=== PATIENT | female | born 1935 | race Caucasian/White ===

== ENCOUNTER → 2019-04-23 | Outpatient (CLI) | payer MEDICARE ==
[~2019-04-23] MED LIST: HYDROCODON-ACE1 EAC7 PO; SYNTHROID300 MCG PO; ZOFRAN4 MG PO
== END ==
LOC: M.ULTRA 11:21
DX: M79.661 Pain in right lower leg (principal); M79.672 Pain in left foot

== ENCOUNTER → 2019-07-16 | Outpatient (CLI) | payer MEDICARE ==
--- NOTE | 2019-07-16 15:25 | 2DMMODE ---
[place] [address] 2 D/M-MODE ECHOCARDIOGRAM Name: LESLIE VILLEGAS Room: [facility]#: [id number] Admission: 07/16/19 Attend Phys: Nicole Loza, Discharge: Date of : 33 Date of Service: 07/16/19 1524 Report #: [id number] THIS REPORT FOR: //name// APPROVED REPORT Study performed: 07/16/2019 13:53:30 EXAM: Comprehensive 2D, Doppler, and color-flow Echocardiogram Patient Location: Out-Patient BSA: 1.47 HR: 82 bpm BP: 118/78 mmHg Other Information Study Quality: Good Indications Peripheral Edema 2D Dimensions IVSd: 9.93 (7-11mm) LVOT Diam: 20.39 (18-24mm) LVDd: 35.14 mm PWd: 9.53 (7-11mm) Ascending Ao: 29.96 (22-36mm) LVDs: 21.28 (25-40mm) Aortic Root: 28.39 mm Volumes Left Atrial Volume (Systole) LA ESV Index: 16.10 mL/m2 Aortic Valve AoV Peak Albert.: 0.95 m/s AO Peak Gr.: 3.60 mmHg LVOT Max P.14 mmHg AO Mean Gr.: 1.87 mmHg LVOT Mean P.94 mmHg LVOT Max V: 1.02 m/s AO V2 VTI: 22.44 cm LVOT Mean V: 0.64 m/s IFRAH (VTI): 3.17 cm2 LVOT V1 VTI: 21.77 cm Mitral Valve E/A Ratio: 0.96 MV Decel. Time: 196.83 ms MV E Max Albert.: 1.05 m/s MV PHT: 57.08 ms MVA (PHT): 3.85 [place]2 [place] [address] 2 D/M-MODE ECHOCARDIOGRAM Name: LESLIE VILLEGAS Room: [facility]#: [id number] Admission: 07/16/19 Attend Phys: Nicole Loza, Discharge: Date of : 33 Date of Service: 07/16/19 1524 Report #: [id number] TDI E/Lateral E': 15.00 E/Medial E': 13.13 Medial E' Albert.: 0.08 m/s Lateral E' Albert.: 0.07 m/s Pulmonary Valve PV Peak Albert.: 0.74 m/s PV Peak Gr.: 2.17 mmHg Tricuspid Valve RAP Estimate: 5.00 mmHg TR Peak Gr.: 26.22 mmHg RVSP: 31.22 mmHg PA Pressure: 31.22 mmHg Left Ventricle The left ventricle is normal size. There is normal LV segmental wall motion. There is normal left ventricular wall thickness. Left ventricular systolic function is normal. The left ventricular ejection fraction is within the normal range. LVEF is 55-60%. Grade I - abnormal relaxation pattern. Right Ventricle The right ventricle is normal size. The right ventricular systolic function is normal. Atria The left atrium size is normal. The right atrium size is normal. Aortic Valve The aortic valve is normal in structure. No aortic regurgitation is present. There is no aortic valvular stenosis. Mitral Valve Mitral valve leaflets are thickened. Mild mitral regurgitation. No evidence of mitral valve stenosis. There is mild mitral valve prolapse. Tricuspid Valve The tricuspid valve is normal in structure. Mild tricuspid regurgitation. estimated pa pressure 35 mm Hg Pulmonic Valve The pulmonary valve is normal in structure. There is no pulmonic [place] [address] 2 D/M-MODE ECHOCARDIOGRAM Name: LESLIE VILLEGAS Room: [facility]#: [id number] Admission: 07/16/19 Attend Phys: Nicole Loza, Discharge: Date of : 33 Date of Service: 07/16/19 1524 Report #: [id number] Great Vessels The aortic root is normal in size. IVC is normal in size and collapses >50% with inspiration. Pericardium There is no pericardial effusion. <Conclusion> LVEF is 55-60%. Mitral valve leaflets are thickened. Mild mitral regurgitation. There is mild mitral valve prolapse. Mild tricuspid regurgitation. estimated pa pressure 35 mm Hg <ELECTRONICALLY SIGNED> By: Tunde Schofield MD, FACC 07/16/19 1524 1524 1524 Tunde Schofield MD, FACC /INF
== END ==
LOC: M.CRD 13:53
DX: I08.1 Rheumatic disorders of both mitral and tricuspid valves (principal); I10 Essential (primary) hypertension

== ENCOUNTER 2019-12-07 12:49 | Emergency (ER) | payer MEDICARE ==
[~2019-12-07] VITALS: Ht 154.9 cm; Wt 50.4 kg
[2019-12-07] MEDS ORDERED: OMEPRAZOLE 20 M20 M1 PO (13:00)
[2019-12-07] MEDS ORDERED: NORCO 5-325 TA1 EAC1 PO (14:23)
[2019-12-07 14:43] VITALS: BP 167/77
== END 2019-12-07 14:44 | disposition home or self-care (01) ==
LOC: M.ERS 12:49
DX: S93.692A Other sprain of left foot, initial encounter (principal); E03.9 Hypothyroidism, unspecified; K21.9 Gastro-esophageal reflux disease without esophagitis; Z90.49 Acquired absence of other specified parts of digestive tract; Z88.2 Allergy status to sulfonamides; Z88.6 Allergy status to analgesic agent; X58.XXXA Exposure to other specified factors, initial encounter; Y93.89 Activity, other specified; Y92.89 Other specified places as the place of occurrence of the external cause; Y99.8 Other external cause status

== ENCOUNTER 2020-03-13 12:01 | Emergency (ER) | payer MEDICARE ==
[~2020-03-13] VITALS: Ht 154.9 cm; Wt 50.4 kg
[~2020-03-13 12:01] MED LIST changes: +NORCO 5-325 TA1 EAC1 PO; +OMEPRAZOLE 20 M20 M1 PO
[2020-03-13 12:52] LABS: BE 1.5 mmol/L (-2 to +3); PCO2 37.9 mmHg (35.0-45.0); pH 7.445 (7.340-7.450)
[2020-03-13 13:01] LABS: ABSOLUTE EOSINOPHILS 0.1 thou/uL (0.0-0.7); ABSOLUTE LYMPHOCYTES 1.5 thou/uL (0.8-5.3); ABSOLUTE MONOCYTES 0.5 thou/uL (0.0-1.2); ABSOLUTE NEUTROPHILS 3.8 thou/uL (1.6-8.1); BASOPHILS 0.6 %; EOSINOPHILS 1.3 %; HEMATOCRIT 38.5 % (37.0-47.0); HEMOGLOBIN 13.2 gm/dL (12.0-15.0); LYMPHOCYTES 24.9 %; MCH 33.5 pg (26.0-34.0); MCHC 34.3 g/dL (28.0-37.0); MCV 97.7 fL (80.0-100.0); MONOCYTES 8.5 %; MPV 9.1 fl. (7.2-11.1); NUCLEATED RBCS 0 /100WBC; PLATELET COUNT* 181 thou/uL (150-400); POLYS 64.7 %; RBC 3.94 mil/uL (4.20-5.00); RDW-CV 13.9 % (10.5-14.5); WBC 5.9 thou/uL (4.0-11.0)
[2020-03-13 13:12] LABS: CALCIUM 8.7 mg/dL (8.5-10.1); CREATININE 0.9 mg/dL (0.6-1.3); POTASSIUM 3.9 mmol/L (3.5-5.1)
[2020-03-13 13:17] LABS: ALBUMIN 4.1 g/dL (3.4-5.0); TOTAL BILIRUBIN 0.6 mg/dL (<0.1-1.0)
[2020-03-13 14:02] VITALS: BP 159/79
== END 2020-03-13 14:04 | disposition home or self-care (01) ==
LOC: M.ERS 12:01
PROVIDERS: Nurse Practitioner Family
DX: R51 Headache (principal); K21.9 Gastro-esophageal reflux disease without esophagitis; E03.9 Hypothyroidism, unspecified; Z77.29 Contact with and (suspected) exposure to other hazardous substances; Z90.49 Acquired absence of other specified parts of digestive tract; Z88.5 Allergy status to narcotic agent; Z88.2 Allergy status to sulfonamides

== ENCOUNTER 2020-05-17 17:09 | Emergency (ER) | payer MEDICARE ==
[~2020-05-17] VITALS: Ht 154.9 cm; Wt 45.8 kg
[2020-05-17 18:56] VITALS: BP 169/78
== END 2020-05-17 18:56 | disposition home or self-care (01) ==
LOC: M.ERS 17:09
DX: S01.01XA Laceration without foreign body of scalp, initial encounter (principal); E03.9 Hypothyroidism, unspecified; K21.9 Gastro-esophageal reflux disease without esophagitis; Z90.49 Acquired absence of other specified parts of digestive tract; Z88.5 Allergy status to narcotic agent; Z88.2 Allergy status to sulfonamides; W01.0XXA Fall on same level from slipping, tripping and stumbling without subsequent striking against object, initial encounter; Y93.89 Activity, other specified; Y92.89 Other specified places as the place of occurrence of the external cause; Y99.8 Other external cause status

== ENCOUNTER 2020-05-27 09:29 | Emergency (ER) | payer MEDICARE ==
[~2020-05-27] VITALS: Ht 154.9 cm; Wt 48.5 kg
[2020-05-27 10:27] VITALS: BP 131/84
== END 2020-05-27 10:27 | disposition home or self-care (01) ==
LOC: M.ERS 09:29
DX: S01.01XD Laceration without foreign body of scalp, subsequent encounter (principal); E03.9 Hypothyroidism, unspecified; K21.9 Gastro-esophageal reflux disease without esophagitis; Z90.49 Acquired absence of other specified parts of digestive tract; Z88.5 Allergy status to narcotic agent; Z88.2 Allergy status to sulfonamides; X58.XXXD Exposure to other specified factors, subsequent encounter